=== PATIENT | female | born 1975 | race Two or more races ===

== ENCOUNTER 2024-05-16 17:24 | Emergency (ER) | payer OTHER ==
[2024-05-16 17:43] VITALS: BP 165/97; PULSE 82; RESP 18; TEMP 98.4; BMI 25.6
[2024-05-16] MEDS ORDERED: DIPHTH,PERTUSS(ACELL),TET 0.5 ML DISP.SYRIN IM ONE (19:08)
[2024-05-16] MEDS: DIPHTH,PERTUSS(ACELL),TET 0.5 ML DISP.SYRIN IM ONE (19:11)
== END 2024-05-16 20:30 | disposition home or self-care (01) ==
LOC: JER 17:24 → JERFT 17:24
PROC: 0HQQXZZ Repair Finger Nail, External Approach (ICD-10-PCS; principal; 2024-05-16)
PROC: 3E0234Z Introduction of Serum, Toxoid and Vaccine into Muscle, Percutaneous Approach (ICD-10-PCS; 2024-05-16)
DX: S61.311A Laceration without foreign body of left index finger with damage to nail, initial encounter (principal); W26.0XXA Contact with knife, initial encounter; Z23 Encounter for immunization
CPT/HCPCS: 11760; 73140-TC-LT-FY; 90471; 90715; 99284-25